=== PATIENT | male | born 1985 | race Two or more races ===

== ENCOUNTER 2024-01-10 18:26 | Emergency (ER) | payer OTHER ==
[~2024-01-10] VITALS: Ht 172.7 cm; Wt 69.3 kg
[2024-01-10] MEDS ORDERED: IBUP-1456 PO (22:06)
[2024-01-10 22:26] VITALS: BP 113/85; PULSE 91; RESP 18; TEMP 99.5; O2SAT 97
[2024-01-10] MEDS: IBUPROFEN 800 MG TAB PO ONE (22:40)
== END 2024-01-10 22:07 | disposition home or self-care (01) ==
LOC: ER 18:26
DX: S46.811A Strain of other muscles, fascia and tendons at shoulder and upper arm level, right arm, initial encounter (principal); Z79.899 Other long term (current) drug therapy; X50.0XXA Overexertion from strenuous movement or load, initial encounter; Y93.89 Activity, other specified; Y92.89 Other specified places as the place of occurrence of the external cause; Y99.0 Civilian activity done for income or pay
CPT/HCPCS: 73030

== ENCOUNTER 2024-01-12 00:32 | Emergency (ER) | payer OTHER ==
[~2024-01-12] VITALS: Ht 172.7 cm; Wt 72.0 kg
[~2024-01-12 00:32] MED LIST: IBUP-1456 PO
[2024-01-12 00:49] VITALS: BP 131/57; PULSE 63; RESP 18; TEMP 97.6; O2SAT 95
[2024-01-12] MEDS: KETOROLAC TROMETH 60MG/2ML VIAL IM ONE (04:15)
[2024-01-12] MEDS ORDERED: CYCL-837 PO (04:48)
== END 2024-01-12 05:12 | disposition home or self-care (01) ==
LOC: ER 00:32
DX: S46.811D Strain of other muscles, fascia and tendons at shoulder and upper arm level, right arm, subsequent encounter (principal); Z79.899 Other long term (current) drug therapy; X58.XXXD Exposure to other specified factors, subsequent encounter
CPT/HCPCS: 96372; 99283; J1885

== ENCOUNTER 2024-02-11 16:26 | Emergency (ER) | payer OTHER ==
[~2024-02-11] VITALS: Ht 172.7 cm; Wt 67.3 kg
[~2024-02-11 16:26] MED LIST changes: +CYCL-837 PO
[2024-02-11 16:51] VITALS: BP 120/72; PULSE 79; RESP 16; TEMP 97.3; O2SAT 98
[2024-02-11] MEDS: KETOROLAC TROMETH 60MG/2ML VIAL IM ONE (17:00)
[2024-02-11] MEDS ORDERED: IBUP1TAB5 PO (17:28)
== END 2024-02-11 17:35 | disposition home or self-care (01) ==
LOC: ER 16:26
DX: G89.29 Other chronic pain (principal); M25.511 Pain in right shoulder; M54.9 Dorsalgia, unspecified; Z88.0 Allergy status to penicillin; X58.XXXA Exposure to other specified factors, initial encounter; Y93.89 Activity, other specified; Y92.69 Other specified industrial and construction area as the place of occurrence of the external cause; Y99.8 Other external cause status
CPT/HCPCS: 96372; 99283; J1885